=== PATIENT | female | born 1975 | race Caucasian/White ===

== ENCOUNTER 2016-04-24 22:50 | Emergency (ER) | payer SELFPAY | END 2016-04-24 23:43 | disposition home or self-care (01) | LOC: ER 22:50 | DX: L73.2 Hidradenitis suppurativa (principal); L02.91 Cutaneous abscess, unspecified; Z90.710 Acquired absence of both cervix and uterus; Z88.0 Allergy status to penicillin | CPT/HCPCS: 99284 ==

== ENCOUNTER 2016-04-26 11:06 | Emergency (ER) | payer SELFPAY | END 2016-04-26 13:00 | disposition home or self-care (01) | LOC: ER 11:06 | PROC: 0H9FXZZ Drainage of Right Hand Skin, External Approach (ICD-10-PCS; principal; 2016-04-26) | DX: L02.411 Cutaneous abscess of right axilla (principal); Z88.0 Allergy status to penicillin; Z88.6 Allergy status to analgesic agent; Z88.8 Allergy status to other drugs, medicaments and biological substances | CPT/HCPCS: 99283 ==

== ENCOUNTER 2016-06-01 22:01 | Emergency (ER) | payer SELFPAY | END 2016-06-02 04:35 | disposition home or self-care (01) | LOC: ER 22:01 | DX: K08.89 Other specified disorders of teeth and supporting structures (principal); Z88.0 Allergy status to penicillin; Z88.6 Allergy status to analgesic agent; Z88.8 Allergy status to other drugs, medicaments and biological substances | CPT/HCPCS: 99283; A9270-GY ==

== ENCOUNTER 2016-06-13 17:56 | Emergency (ER) | payer SELFPAY | END 2016-06-13 18:10 | disposition home or self-care (01) | LOC: ER 17:56 | DX: S39.012A Strain of muscle, fascia and tendon of lower back, initial encounter (principal); Z88.0 Allergy status to penicillin; Z88.8 Allergy status to other drugs, medicaments and biological substances; X58.XXXA Exposure to other specified factors, initial encounter | CPT/HCPCS: 72100; 96372; 99283; J2930 ==

== ENCOUNTER → 2016-07-27 23:34 | Emergency (ER) | payer SELFPAY ==
[2016-07-27 22:29] LABS: BASOPHILS 0.3 %; BASOPHILS ABSOLUTE 0.04 10/3/uL (0.0-0.16); EOSINOPHILS 6.7 %; EOSINOPHILS ABSOLUTE 0.82 10/3/uL (0.0-0.53); HEMATOCRIT 40.6 % (36.0-48.0); HEMOGLOBIN 13.4 g/dL (12.0-16.0); IMMATURE GRANULOCYTES 0.2 %; IMMATURE GRANULOCYTES ABSOLUTE 0.03 10/3/uL (0.0-0.11); LYMPHOCYTES 17.6 %; LYMPHOCYTES ABSOLUTE 2.16 10/3/uL (0.67-4.30); MANUAL DIFF NO %; MEAN CORPUSCULAR VOLUME 87.9 fL (80-100); MEAN PLATELET VOLUME 10.5 fL (9.2-13.0); MONOCYTES 4.1 %; NEUTROPHILS 71.1 %; PLATELET COUNT 360 10/3/uL (150-400); RED CELL COUNT 4.62 10/6/uL (4.0-5.6); WHITE BLOOD CELLS 12.3 10/3/uL (4.5-10.5)
[2016-07-27 22:36] LABS: PARTIAL THROMBO TIME 29.8 SEC (22.5-37.2); PROTIME (NOT ORD) 13.2 SEC (12.0-14.5)
[2016-07-27 22:45] LABS: A/G RATIO 0.9 (0.7-1.9); ALBUMIN 3.8 G/DL (3.5-5.0); ALKALINE PHOSPHATASE 114 U/L (45-117); BUN (BLOOD UREA NITROGEN) 5 MG/DL (6-23); CALCIUM, SERUM 9.4 MG/DL (8.5-10.4); CHLORIDE, SERUM 98 MMOL/L (96-112); CO2 (CARBON DIOXIDE) 33 MMOL/L (24-34); CREATININE 0.78 MG/DL (0.55-1.02); GFR AFRICAN AMERICAN 110 ML/MIN (>=60); GFR NON AFRICAN AMERICAN 95 ML/MIN (>=60); GLOBULIN 4.3 G/DL (2.5-4.1); GLUCOSE, SERUM 94 MG/DL (60-99); SGOT(AST) 32 U/L (5-40); SGPT(ALT) 43 U/L (5-65); SODIUM, SERUM 136 MMOL/L (135-148); TOTAL BILIRUBIN 0.6 MG/DL (0-1.2); TOTAL PROTEIN 8.1 G/DL (6.0-8.5)
[2016-07-27 23:31] LABS: ASCORBIC ACID (UR NOT ORDER) 20 (NEG); BILIRUBIN, URINE SMALL (NEG); ER URINALYSIS TAT 0 Hrs 00 Mins; KETONE, URINE NEGATIVE (NEG); LEUKOCYTE ESTERASE(NOT OR MOD (NEG); NITRITE (URINE) NEG (NEG); WBC (NOT ORDERED) (RFLEX) 11 (0-5)
== END | disposition left against medical advice (07) ==
LOC: ER 23:34
PROVIDERS: Emergency Medicine
DX: L02.91 Cutaneous abscess, unspecified (principal); Z53.21 Procedure and treatment not carried out due to patient leaving prior to being seen by health care provider
CPT/HCPCS: 71020; 80053; 81001; 83605; 83690; 85025; 85610; 85730; 87040; 87086; 93005